=== PATIENT | male | born 1975 | race Asian ===

== ENCOUNTER 2020-12-01 09:20 | Outpatient (REF) | payer OTHER, SELFPAY ==
[2020-12-01 10:21] LABS: MANUAL DIFF FLAG NO
[2020-12-01 10:23] LABS: Basophils Absolute Auto 0.1 X10*3/uL (0.0-0.2); Basophils Percent Auto 0.5 % (0-2); Eosinophils Absolute Auto 0.3 X10*3/uL (0.0-0.4); Eosinophils Percent Auto 2.7 % (0-4); Hematocrit 40.6 % (42-52); Hemoglobin 13.1 g/dl (14.0-18.0); Imm Gran Abs Auto 0.02 X10*3/uL (0.00-0.03); Imm Gran Pct Auto 0.2 % (0.0-0.4); Lymphocytes Absolute Auto 4.4 X10*3/uL (1.2-4.9); Lymphocytes Percent Auto 39.9 % (20-40); Mean Corpuscular HGB Conc 32.3 g/dl (31.0-36.0); Mean Corpuscular Hemoglobin 26.6 pg (27.0-33.0); Mean Corpuscular Volume 82.5 fL (80-98); Mean Platelet Volume 10.4 fL (9.4-12.4); Monocytes Absolute Auto 0.7 X10*3/uL (0.1-1.2); Monocytes Percent Auto 6.7 % (2-11); Neutrophils Absolute Auto 5.5 X10*3/uL (2.0-8.3); Platelet Count 250 X10*3/uL (160-400); Red Blood Count 4.92 X10*6/uL (4.60-5.80); Red Cell Distribution Width 13.6 % (11.0-16.0)
[2020-12-01 10:42] LABS: Alanine Aminotransferase 34 U/L (0-40); Alkaline Phosphatase 91 U/L (39-117); Anion Gap 16 (12-20); Aspartate Amino Transferase 28 U/L (5-37); Bilirubin Total 0.3 mg/dL (0.0-1.0); Blood Urea Nitrogen 10 mg/dL (9-16); Calcium 8.8 mg/dL (8.4-10.2); Carbon Dioxide 22 mmol/L (22-29); Chloride 102 mmol/L (96-108); Cholesterol 188 mg/dL; Estimated Glomerular Filt Rate > 60; Glucose Random 255 mg/dL (60-115); HDL Cholesterol 29 mg/dL; LDL Cholesterol Calculated 100 mg/dl; Potassium 3.8 mmol/L (3.3-5.1); Sodium 136 mmol/L (135-145); Triglycerides 299 mg/dL
[2020-12-01 10:54] LABS: Estimated Average Glucose 226 mg/dL; Hemoglobin A1c % 9.5 %
[2020-12-01 11:04] LABS: Free T4 (Free Thyroxine) 0.94 ng/dL (0.71-1.85); Thyroid Stimulating Hormone 1.33 uIU/mL (0.32-4.0)
== END 2020-12-01 09:21 | disposition home or self-care (01) ==
LOC: HO.10HDL 09:20
PROVIDERS: Visit Provider Internal Medicine Medical Oncology
DX: E78.2 Mixed hyperlipidemia (principal); K21.9 Gastro-esophageal reflux disease without esophagitis; E03.9 Hypothyroidism, unspecified; E11.9 Type 2 diabetes mellitus without complications
CPT/HCPCS: 36415; 80053; 80061; 83036; 84439; 84443; 85025

== ENCOUNTER 2021-12-11 10:20 | Outpatient (REF) | payer OTHER, SELFPAY ==
[2021-12-11 10:42] LABS: MANUAL DIFF FLAG NO
[2021-12-11 11:55] LABS: Basophils Absolute Auto 0.1 X10*3/uL (0.0-0.2); Basophils Percent Auto 0.6 % (0-2); Eosinophils Absolute Auto 0.2 X10*3/uL (0.0-0.4); Eosinophils Percent Auto 2.8 % (0-4); Hematocrit 44.5 % (42.0-52.0); Hemoglobin 14.2 g/dl (14.0-18.0); Imm Gran Abs Auto 0.02 X10*3/uL (0.00-0.03); Imm Gran Pct Auto 0.2 % (0.0-0.4); Lymphocytes Absolute Auto 3.9 X10*3/uL (1.2-4.9); Lymphocytes Percent Auto 46.8 % (20-40); Mean Corpuscular HGB Conc 31.9 g/dl (31.0-36.0); Mean Corpuscular Hemoglobin 26.2 pg (27.0-33.0); Monocytes Absolute Auto 0.6 X10*3/uL (0.1-1.2); Monocytes Percent Auto 7.4 % (2-11); Neutrophils Absolute Auto 3.5 x10*3/uL (2.0-8.3); Neutrophils Percent Auto 42.2 % (45-73); Platelet Count 220 X10*3/uL (160-400); Red Blood Count 5.43 X10*6/uL (4.60-5.80); Red Cell Distribution Width 13.9 % (11.0-16.0); White Blood Count 8.3 X10*3/uL (4.8-10.8)
[2021-12-11 11:57] LABS: Estimated Average Glucose 249 mg/dL; Hemoglobin A1c % 10.3 %
[2021-12-11 12:37] LABS: Alanine Aminotransferase 36 U/L (0-40); Albumin Level 3.8 g/dL (3.5-5.0); Alkaline Phosphatase 86 U/L (39-117); Anion Gap 13 (12-20); Aspartate Amino Transferase 45 U/L (5-37); Bilirubin Total 0.4 mg/dL (0.0-1.0); Blood Urea Nitrogen 11 mg/dL (9-16); Calcium 8.7 mg/dL (8.4-10.2); Carbon Dioxide 23 mmol/L (22-29); Chloride 105 mmol/L (96-108); Cholesterol 210 mg/dL; Estimated Glomerular Filt Rate > 60; Glucose Fasting 152 mg/dL (60-99); HDL Cholesterol 30 mg/dL; LDL Cholesterol Calculated 147 mg/dl; Potassium 4.8 mmol/L (3.3-5.1); Sodium 136 mmol/L (135-145); Total Protein 7.2 g/dL (6.5-8.0); Triglycerides 169 mg/dL
[2021-12-11 12:38] LABS: Creatinine Urine 372.02 mg/dL
== END 2021-12-11 10:21 | disposition home or self-care (01) ==
LOC: HO.LAB 10:20
PROVIDERS: PCP Internal Medicine Medical Oncology; Visit Provider Internal Medicine Medical Oncology
DX: E11.9 Type 2 diabetes mellitus without complications (principal); E78.2 Mixed hyperlipidemia; E66.9 Obesity, unspecified
CPT/HCPCS: 36415; 80053; 80061; 82043; 83036; 85025

== ENCOUNTER 2023-03-30 10:01 | Outpatient (REF) | payer OTHER, SELFPAY ==
[2023-03-30 11:16] LABS: Estimated Average Glucose 255 mg/dL; Hemoglobin A1c % 10.5 %
[2023-03-30 11:18] LABS: Basophils Absolute Auto 0.1 X10*3/uL (0.0-0.2); Basophils Percent Auto 0.6 % (0-2); Eosinophils Absolute Auto 0.3 X10*3/uL (0.0-0.4); Eosinophils Percent Auto 2.4 % (0-4); Hematocrit 46.6 % (42.0-52.0); Hemoglobin 14.8 g/dl (14.0-18.0); Imm Gran Abs Auto 0.05 X10*3/uL (0.00-0.03); Imm Gran Pct Auto 0.4 % (0.0-0.4); Lymphocytes Absolute Auto 5.1 X10*3/uL (1.2-4.9); Lymphocytes Percent Auto 40.7 % (20-40); MANUAL DIFF FLAG SCAN; Mean Corpuscular HGB Conc 31.8 g/dl (31.0-36.0); Mean Corpuscular Hemoglobin 26.2 pg (27.0-33.0); Mean Corpuscular Volume 82.5 fL (80.0-98.0); Mean Platelet Volume 10.6 fL (9.4-12.4); Monocytes Absolute Auto 0.8 X10*3/uL (0.1-1.2); Monocytes Percent Auto 6.1 % (2-11); Neutrophils Absolute Auto 6.3 x10*3/uL (2.0-8.3); Neutrophils Percent Auto 49.8 % (45-73); Platelet Count 258 X10*3/uL (160-400); Red Blood Count 5.65 X10*6/uL (4.60-5.80); Red Cell Distribution Width 13.8 % (11.0-16.0); SCAN SMEAR FLAG 1; White Blood Count 12.6 X10*3/uL (4.8-10.8)
[2023-03-30 12:02] LABS: Prostate Specific Antigen 0.17 ng/mL (<0.05-4.0)
[2023-03-30 12:04] LABS: Alanine Aminotransferase 26 U/L (0-40); Albumin Level 4.1 g/dL (3.5-5.0); Alkaline Phosphatase 85 U/L (39-117); Anion Gap 14 (12-20); Aspartate Amino Transferase 21 U/L (5-37); Bilirubin Total 0.4 mg/dL (0.0-1.0); Blood Urea Nitrogen 18 mg/dL (9-16); Calcium 9.7 mg/dL (8.4-10.2); Carbon Dioxide 24 mmol/L (22-29); Chloride 107 mmol/L (96-108); Cholesterol 214 mg/dL; Estimated Glomerular Filt Rate > 60; Glucose Random 165 mg/dL (60-115); HDL Cholesterol 32 mg/dL; LDL Cholesterol Calculated 143 mg/dl; Potassium 4.2 mmol/L (3.3-5.1); Sodium 141 mmol/L (135-145); Total Protein 7.9 g/dL (6.5-8.0); Triglycerides 198 mg/dL
[2023-03-30 12:17] LABS: Creatinine Urine 237.36 mg/dL; Microalbum/Creatinine Ratio Ur 8.8 ug/mg cr
[2023-03-30 12:58] LABS: SLIDE REVIEW VERIFIED
== END 2023-03-30 10:02 | disposition home or self-care (01) ==
LOC: HO.LAB 10:01
PROVIDERS: PCP Internal Medicine Medical Oncology; Visit Provider Internal Medicine Medical Oncology
DX: Z00.00 Encounter for general adult medical examination without abnormal findings (principal); Z12.5 Encounter for screening for malignant neoplasm of prostate; E78.2 Mixed hyperlipidemia; N52.9 Male erectile dysfunction, unspecified; E66.9 Obesity, unspecified; E11.9 Type 2 diabetes mellitus without complications
CPT/HCPCS: 36415; 80053; 80061; 82043; 82306; 83036; 84153; 85025

== ENCOUNTER 2023-08-03 09:09 | Outpatient (REF) | payer OTHER, SELFPAY ==
[2023-08-03 09:36] LABS: MANUAL DIFF FLAG NO
[2023-08-03 10:21] LABS: Basophils Absolute Auto 0.1 X10*3/uL (0.0-0.2); Basophils Percent Auto 0.7 % (0-2); Eosinophils Absolute Auto 0.4 X10*3/uL (0.0-0.4); Eosinophils Percent Auto 3.1 % (0-4); Hematocrit 44.6 % (42.0-52.0); Hemoglobin 14.4 g/dl (14.0-18.0); Imm Gran Abs Auto 0.04 X10*3/uL (0.00-0.03); Imm Gran Pct Auto 0.4 % (0.0-0.4); Lymphocytes Absolute Auto 4.6 X10*3/uL (1.2-4.9); Lymphocytes Percent Auto 40.4 % (20-40); Mean Corpuscular HGB Conc 32.3 g/dl (31.0-36.0); Mean Corpuscular Hemoglobin 26.2 pg (27.0-33.0); Mean Corpuscular Volume 81.2 fL (80.0-98.0); Mean Platelet Volume 9.6 fL (9.4-12.4); Monocytes Absolute Auto 0.8 X10*3/uL (0.1-1.2); Neutrophils Absolute Auto 5.5 x10*3/uL (2.0-8.3); Neutrophils Percent Auto 48.4 % (45-73); Platelet Count 282 X10*3/uL (160-400); Red Blood Count 5.49 X10*6/uL (4.60-5.80); Red Cell Distribution Width 13.9 % (11.0-16.0); White Blood Count 11.3 X10*3/uL (4.8-10.8)
[2023-08-03 10:39] LABS: Alanine Aminotransferase 34 U/L (0-40); Albumin Level 4.1 g/dL (3.5-5.0); Alkaline Phosphatase 69 U/L (39-117); Anion Gap 15 (12-20); Aspartate Amino Transferase 29 U/L (5-37); Bilirubin Total 0.5 mg/dL (0.0-1.0); Blood Urea Nitrogen 12 mg/dL (9-16); Calcium 9.4 mg/dL (8.4-10.2); Carbon Dioxide 24 mmol/L (22-29); Chloride 103 mmol/L (96-108); Cholesterol 216 mg/dL (<200); Estimated Glomerular Filt Rate > 60; Glucose Fasting 134 mg/dL (60-99); HDL Cholesterol 31 mg/dL (>40); LDL Cholesterol Calculated 150 mg/dL (<100); Potassium 4.6 mmol/L (3.3-5.1); Sodium 137 mmol/L (135-145); Triglycerides 177 mg/dL (<150)
[2023-08-03 10:45] LABS: Estimated Average Glucose 192 mg/dL; Hemoglobin A1c % 8.3 % (<6.0)
== END 2023-08-03 09:10 | disposition home or self-care (01) ==
LOC: HO.LAB 09:09
PROVIDERS: PCP Internal Medicine Medical Oncology; Visit Provider Internal Medicine Medical Oncology
DX: E66.9 Obesity, unspecified (principal); E11.9 Type 2 diabetes mellitus without complications
CPT/HCPCS: 36415; 80053; 80061; 83036; 85025

== ENCOUNTER 2023-11-07 10:29 | Outpatient (REF) | payer OTHER, SELFPAY ==
[2023-11-07 10:46] LABS: MANUAL DIFF FLAG NO
[2023-11-07 11:27] LABS: Basophils Absolute Auto 0.1 X10*3/uL (0.0-0.2); Basophils Percent Auto 0.7 % (0-2); Eosinophils Absolute Auto 0.2 X10*3/uL (0.0-0.4); Eosinophils Percent Auto 2.3 % (0-4); Hematocrit 44.6 % (42.0-52.0); Hemoglobin 14.6 g/dl (14.0-18.0); Imm Gran Abs Auto 0.03 X10*3/uL (0.00-0.03); Imm Gran Pct Auto 0.3 % (0.0-0.4); Lymphocytes Absolute Auto 3.4 X10*3/uL (1.2-4.9); Lymphocytes Percent Auto 35.7 % (20-40); Mean Corpuscular HGB Conc 32.7 g/dl (31.0-36.0); Mean Corpuscular Hemoglobin 26.2 pg (27.0-33.0); Mean Corpuscular Volume 79.9 fL (80.0-98.0); Monocytes Absolute Auto 0.6 X10*3/uL (0.1-1.2); Monocytes Percent Auto 6.2 % (2-11); Neutrophils Absolute Auto 5.2 x10*3/uL (2.0-8.3); Neutrophils Percent Auto 54.8 % (45-73); Platelet Count 278 X10*3/uL (160-400); Red Blood Count 5.58 X10*6/uL (4.60-5.80); Red Cell Distribution Width 13.9 % (11.0-16.0); White Blood Count 9.5 X10*3/uL (4.8-10.8)
[2023-11-07 11:38] LABS: Estimated Average Glucose 200 mg/dL; Hemoglobin A1c % 8.6 % (<6.0)
[2023-11-07 12:06] LABS: Alanine Aminotransferase 28 U/L (0-40); Alkaline Phosphatase 78 U/L (39-117); Anion Gap 13 (12-20); Aspartate Amino Transferase 22 U/L (5-37); Bilirubin Total 0.4 mg/dL (0.0-1.0); Blood Urea Nitrogen 14 mg/dL (9-16); Calcium 9.3 mg/dL (8.4-10.2); Carbon Dioxide 25 mmol/L (22-29); Chloride 106 mmol/L (96-108); Cholesterol 206 mg/dL (<200); Estimated Glomerular Filt Rate > 60; Glucose Random 145 mg/dL (60-115); HDL Cholesterol 31 mg/dL (>40); LDL Cholesterol Calculated 148 mg/dL (<100); Potassium 4.1 mmol/L (3.3-5.1); Sodium 140 mmol/L (135-145); Total Protein 7.9 g/dL (6.5-8.0); Triglycerides 135 mg/dL (<150)
[2023-11-07 12:58] LABS: Microalbum/Creatinine Ratio Ur 18.3 ug/mg cr (<30)
== END 2023-11-07 10:30 | disposition home or self-care (01) ==
LOC: HO.LAB 10:29
PROVIDERS: PCP Internal Medicine Medical Oncology; Visit Provider Internal Medicine Medical Oncology
DX: E78.2 Mixed hyperlipidemia (principal); E66.9 Obesity, unspecified; E11.21 Type 2 diabetes mellitus with diabetic nephropathy
CPT/HCPCS: 36415; 80053; 80061; 82043; 82570; 83036; 85025

== ENCOUNTER 2024-07-13 01:53 | Emergency (ER) | payer OTHER, SELFPAY ==
[2024-07-13 01:55] VITALS: BP 140/79; PULSE 98; RESP 20; TEMP 36.6; O2SAT 98; BMI 39.1
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
[2024-07-13 04:00] VITALS: BP 134/76; PULSE 76; RESP 14; TEMP 36.4; O2SAT 97
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
[2024-07-13] MEDS: Ibuprofen 400 MG TABLET PO (05:04)
[2024-07-13] MEDS: Amoxicillin/Potassium Clav 875 MG TABLET PO (05:04)
[2024-07-13] MEDS: Acetaminophen 325 MG TABLET 975 MG PO (05:04)
[2024-07-13] MEDS: Lidocaine HCl 1 % MPF 2 ML VIAL 4 ML INFILTRATI (05:04)
--- NOTE | 2024-07-13 05:13 | PC.NURSE ---
Pt medicated per [facility] Plan of care ongoing.
[2024-07-13 05:20] VITALS: BP 134/76; PULSE 76; RESP 14; TEMP 36.4; O2SAT 97
== END 2024-07-13 05:22 | disposition home or self-care (01) ==
PROVIDERS: Emergency Provider Emergency Medicine; PCP Internal Medicine Medical Oncology
DX: S01.511A Laceration without foreign body of lip, initial encounter (principal); Y04.0XXA Assault by unarmed brawl or fight, initial encounter; Y93.9 Activity, unspecified; Y92.512 Supermarket, store or market as the place of occurrence of the external cause; Y99.0 Civilian activity done for income or pay
CPT/HCPCS: 12011; 99284; J2003

== ENCOUNTER 2024-08-20 13:58 | Outpatient (REF) | payer OTHER, SELFPAY ==
[2024-08-20 14:42] LABS: Basophils Absolute Auto 0.1 X10*3/uL (0.0-0.2); Basophils Percent Auto 0.7 % (0-2); Eosinophils Absolute Auto 0.4 X10*3/uL (0.0-0.4); Hematocrit 42.6 % (42.0-52.0); Hemoglobin 13.8 g/dl (14.0-18.0); Imm Gran Abs Auto 0.03 X10*3/uL (0.00-0.03); Imm Gran Pct Auto 0.2 % (0.0-0.4); Lymphocytes Absolute Auto 5.2 X10*3/uL (1.2-4.9); Lymphocytes Percent Auto 42.1 % (20-40); MANUAL DIFF FLAG SCAN; Mean Corpuscular HGB Conc 32.4 g/dl (31.0-36.0); Mean Corpuscular Volume 80.4 fL (80.0-98.0); Mean Platelet Volume 9.8 fL (9.4-12.4); Monocytes Absolute Auto 0.9 X10*3/uL (0.1-1.2); Monocytes Percent Auto 7.1 % (2-11); Neutrophils Absolute Auto 5.8 x10*3/uL (2.0-8.3); Neutrophils Percent Auto 46.9 % (45-73); Platelet Count 280 X10*3/uL (160-400); Red Cell Distribution Width 14.6 % (11.0-16.0); SCAN SMEAR FLAG 1; White Blood Count 12.3 X10*3/uL (4.8-10.8)
[2024-08-20 14:48] LABS: Estimated Average Glucose 223 mg/dL; Hemoglobin A1C 282.8261 umol/L; Hemoglobin A1c % 9.4 % (<6.0); Total Hemoglobin (HGBA1C) 3546.0747 umol/L
[2024-08-20 15:06] LABS: SLIDE REVIEW VERIFIED
[2024-08-20 15:07] LABS: Alanine Aminotransferase 25 U/L (0-40); Albumin Level 4.1 g/dL (3.5-5.0); Alkaline Phosphatase 73 U/L (39-117); Anion Gap 14 (12-20); Aspartate Amino Transferase 21 U/L (5-37); Bilirubin Total 0.4 mg/dL (0.0-1.0); Blood Urea Nitrogen 10 mg/dL (9-16); Calcium 9.1 mg/dL (8.4-10.2); Carbon Dioxide 24 mmol/L (22-29); Chloride 107 mmol/L (96-108); Estimated Glomerular Filt Rate > 60; Glucose Fasting 197 mg/dL (60-99); Potassium 4.4 mmol/L (3.3-5.1); Sodium 141 mmol/L (135-145); Total Protein 7.6 g/dL (6.5-8.0)
--- OUTSIDE RECORDS SUMMARY | 2024-08-20 15:25 | XMS_ITS ---
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 Role Phone Mohamud Covarrubias Primary Care Provider REASON FOR VISIT Needs call back from Medications Medication SIG (Take, Route, Frequency, Duration) Notes Start Date End Date Status Azithromycin 250 MG as directed Orally 2 Tablets on the first day, one tablet the rest of the days for 5 days disp one inhaler 08/06/2024 Active Albuterol Sulfate HFA 108 (90 Base) MCG/ACT 1 puff as needed Inhalation every 4 hrs for 28 days disp one inhaler 08/06/2024 Active predniSONE 20 MG 1 tablet Orally Once a day for 7 days disp one inhaler 08/06/2024 08/20/2024 Active Social History Sex Assigned At : Social History Observation Description Sex Assigned At Male Encounters Encounter Location Date Provider Diagnosis Mohamud Covarrubias III, MD [address] [place] [address] [place] [address] 08/06/2024 Mohamud Covarrubias Plan Of Treatment Medication Medication Name Sig Start Date Stop Date Notes Azithromycin 250 MG as directed Orally 2 Tablets on the first day, one tablet the rest of the days for 5 days 08/06/2024 disp one inhaler Albuterol Sulfate HFA 108 (90 Base) MCG/ACT 1 puff as needed Inhalation every 4 hrs for 28 days 08/06/2024 disp one inhaler predniSONE 20 MG 1 tablet Orally Once a day for 7 days 08/06/2024 08/20/2024 disp one inhaler Next Appt Details Provider Name:Mohamud Covarrubias 08/21/2024 11:00:00 AM, [address] [facility] [address], [place], [id number], Provider Name:Mohamud Covarrubias, 10/02/2024 09:00:00 AM, [address] [place] [address] [address], [place], [phone], Progress Notes * Khoi MATHURdDOB:1974 (49 yo M)Acc No.[id number]:08/06/2024 Patient:?LEECHAPIS Yolanda :1975???Age:49 Y???Sex:Male Address:[address] [place] [address] [place], [id number] * Refills? Start Azithromycin Tablet, 250 MG, Orally, 6, as directed, 2 Tablets on the first day, one tablet the rest of the days, 5 days, Refills=0 Start predniSONE Tablet, 20 MG, Orally, 7 Tablet, 1 tablet, Once a day, 7 days, Refills=1 Start Albuterol Sulfate HFA Aerosol Solution, 108 (90 Base) MCG/ACT, Inhalation, 1 Applicator, 1 puff as needed, every 4 hrs, 28 days, Refills=1 * * Date:?
--- OUTSIDE RECORDS SUMMARY | 2024-08-20 15:25 | XMS_ITS | Patient Health Record ---
Author Organization Mohamud Covarrubias III, MD Address [address] [place] [address] Care Team Providers Care Fairing Man Name Role Phone Mohamud Covarrubias Primary Care Provider Allergies Allergen (clinical drug ingredient) Drug/Non Drug Allergy documented on EMR Reaction Allergy Type Onset Date Status No Known Drug Allergy Unknown Drug Allergy Active Results Component Value Reference Range Notes Complete Blood Count Auto Di ff Reviewed date:11/09/2023 01:27:25 PM Interpretation: Performing Lab:[facility], [address] [place] [phone] Notes/Report: White Blood Count 9.5 4.8-10.8 X10*3/uL Red Blood Count 5.58 4.60-5.80 X10*6/uL Hemoglobin 14.6 14.0-18.0 g/dl Hematocrit 44.6 42.0-52.0 % Mean Corpuscular Volume 79.9 80.0-98.0 fL Mean Corpuscular Hemoglobin 26.2 27.0-33.0 pg Mean Corpuscular HGB Conc 32.7 31.0-36.0 g/dl Red Cell Distribution Width 13.9 11.0-16.0 % Platelet Count 278 160-400 X10*3/uL Mean Platelet Volume 10.0 9.4-12.4 fL Neutrophils Percent Auto 54.8 45-73 % Imm Gran Pct Auto 0.3 0.0-0.4 % Lymphocytes Percent Auto 35.7 20-40 % Monocytes Percent Auto 6.2 2-11 % Eosinophils Percent Auto 2.3 0-4 % Basophils Percent Auto 0.7 0-2 % NRBC Pct Auto 0.0 0.0-0.2 /100WBC Neutrophils Absolute Auto 5.2 2.0-8.3 x10*3/u L Imm Gran Abs Auto 0.03 0.00-0.03 X10*3/uL Lymphocytes Absolute Auto 3.4 1.2-4.9 X10*3/u L Monocytes Absolute Auto 0.6 0.1-1.2 X10*3/uL Eosinophils Absolute Auto 0.2 0.0-0.4 X10*3/u L Basophils Absolute Auto 0.1 0.0-0.2 X10*3/uL NRBC Abs Auto 0.000 0.0-0.012 X10*3/uL Comprehensive Met. Panel Reviewed date:11/09/2023 01:27:25 PM Interpretation: Performing Lab:[address] [phone] Notes/Report: Sodium 140 135-145 mmol/L Potassium 4.1 3.3-5.1 mmol/L Chloride 106 96-108 mmol/L Carbon Dioxide 25 22-29 mmol/L Anion Gap 13 12-20 Blood Urea Nitrogen 14 9-16 mg/dL Creatinine 0.83 0.5-1.4 mg/dL Estimated Glomerular Filt Rate > 60 NOTE: For -Martiniquais individuals, multiply the result by 1.210. Chronic Kidney Disease: Estimated GFR < 60 mL/min/1.73m2 Severe Kidney Disease: Estimated GFR < 15 mL/min/1.73m2 Glucose Random 145 60-115 mg/dL Calcium 9.3 8.4-10.2 mg/dL Bilirubin Total 0.4 0.0-1.0 mg/dL Aspartate Amino Transferase 22 5-37 U/L Alanine Aminotransferase 28 0-40 U/L Total Protein 7.9 6.5-8.0 g/dL Albumin Level 4.0 3.5-5.0 g/dL Alkaline Phosphatase 78 39-117 U/L Lipid Panel Reviewed date:11/09/2023 01:27:25 PM Interpretation: Performing Lab:[address] [phone] Notes/Report: Triglycerides 135 <150 mg/dL Desirable Triglyceride: less than 150 mg/dL Borderline High Triglyceride 150-199 mg/dL High Triglyceride: 200-499 mg/dL Very High Triglyceride: greater than or equal to 5OO mg/dL Cholesterol 206 <200 mg/dL Desirable Cholesterol: less than 200 mg/dL Borderline High Cholesterol: 200-239 mg/dL High Cholesterol: greater than 239 mg/dL LDL Cholesterol Calculated 148 <100 mg/dL Desirable LDL: less than 100 mg/dL Near Optimal/Above Optimal LDL: 110-129 mg/dL Borderline High LDL: 130-159 mg/dL High LDL: 160-189 mg/dL Very High LDL: greater than or equal to 190 mg/dL HDL Cholesterol 31 >40 mg/dL Desirable HDL: greater than 40 mg/dL Note: This HDL assay may give artificially low results in patients with liver disease. Microalbumin, Random Reviewed date:11/09/2023 01:27:25 PM Interpretation: Performing Lab:[address] [phone] Notes/Report: Creatinine Urine 364.76 Microalbumin Urine 67.0 Microalbum/Creatinine Ratio Ur 18.3 <30 ug/mg cr Albumin/Creatinine Ratio Reference Ranges: Normal: < 30 ug/mg creatinine Microalbuminuria: 30 - 300 ug/mg creatinine Clinical Albuminuria: > 300 ug/mg creatinine Hemoglobin A1c Reviewed date:11/09/2023 01:27:25 PM Interpretation: Performing Lab:[facility], [address] [place] [phone] Notes/Report: Hemoglobin A1c % 8.6 <6.0 % Hemoglobin A1C Reference Range Adults: 4.8 - 6.0 % Non diabetic: < 6.0 % Goal: < 7.0 % Additional Action Suggested: > 8.0 % Note: Hemoglobin A1c results are invalid for patients with abnormal amounts of HbF. Blood transfusions may impact the HbA1c concentration in the patient sample. Estimated Average Glucose 200 eAG = Estimated average glucose which is %A1C expressed as average glucose, using the formula of the Y6N-Oweeach Average Glucose study (ADAG), Diabetes Care, Vol.31,#8, Mar. 2007 Complete Blood Count Auto Di ff (Not yet reviewed by provider) Interpretation: Performing Lab:[facility], [address] [place] [phone] Notes/Report: White Blood Count 12.3 4.8-10.8 X10*3/uL Red Blood Count 5.30 4.60-5.80 X10*6/uL Hemoglobin 13.8 14.0-18.0 g/dl Hematocrit 42.6 42.0-52.0 % Mean Corpuscular Volume 80.4 80.0-98.0 fL Mean Corpuscular Hemoglobin 26.0 27.0-33.0 pg Mean Corpuscular HGB Conc 32.4 31.0-36.0 g/dl Red Cell Distribution Width 14.6 11.0-16.0 % Platelet Count 280 160-400 X10*3/uL Mean Platelet Volume 9.8 9.4-12.4 fL Neutrophils Percent Auto 46.9 45-73 % Imm Gran Pct Auto 0.2 0.0-0.4 % Lymphocytes Percent Auto 42.1 20-40 % Monocytes Percent Auto 7.1 2-11 % Eosinophils Percent Auto 3.0 0-4 % Basophils Percent Auto 0.7 0-2 % NRBC Pct Auto 0.0 0.0-0.2 /100WBC Neutrophils Absolute Auto 5.8 2.0-8.3 x10*3/u L Imm Gran Abs Auto 0.03 0.00-0.03 X10*3/uL Lymphocytes Absolute Auto 5.2 1.2-4.9 X10*3/u L Monocytes Absolute Auto 0.9 0.1-1.2 X10*3/uL Eosinophils Absolute Auto 0.4 0.0-0.4 X10*3/u L Basophils Absolute Auto 0.1 0.0-0.2 X10*3/uL NRBC Abs Auto 0.000 0.0-0.012 X10*3/uL White Blood Count 12.3 4.8-10.8 X10*3/uL Red Blood Count 5.30 4.60-5.80 X10*6/uL Hemoglobin 13.8 14.0-18.0 g/dl Hematocrit 42.6 42.0-52.0 % Mean Corpuscular Volume 80.4 80.0-98.0 fL Mean Corpuscular Hemoglobin 26.0 27.0-33.0 pg Mean Corpuscular HGB Conc 32.4 31.0-36.0 g/dl Red Cell Distribution Width 14.6 11.0-16.0 % Platelet Count 280 160-400 X10*3/uL Mean Platelet Volume 9.8 9.4-12.4 fL Neutrophils Percent Auto 46.9 45-73 % Imm Gran Pct Auto 0.2 0.0-0.4 % Lymphocytes Percent Auto 42.1 20-40 % Monocytes Percent Auto 7.1 2-11 % Eosinophils Percent Auto 3.0 0-4 % Basophils Percent Auto 0.7 0-2 % NRBC Pct Auto 0.0 0.0-0.2 /100WBC Neutrophils Absolute Auto 5.8 2.0-8.3 x10*3/u L Imm Gran Abs Auto 0.03 0.00-0.03 X10*3/uL Lymphocytes Absolute Auto 5.2 1.2-4.9 X10*3/u L Monocytes Absolute Auto 0.9 0.1-1.2 X10*3/uL Eosinophils Absolute Auto 0.4 0.0-0.4 X10*3/u L Basophils Absolute Auto 0.1 0.0-0.2 X10*3/uL NRBC Abs Auto 0.000 0.0-0.012 X10*3/uL CORRECTED REPORT CORRECTED REPORT Comprehensive Wilmot. Panel Fa st (Not yet reviewed by provider) Interpretation: Performing Lab:[facility], [address] [place] [phone] Notes/Report: Sodium 141 135-145 mmol/L Potassium 4.4 3.3-5.1 mmol/L Chloride 107 96-108 mmol/L Carbon Dioxide 24 22-29 mmol/L Anion Gap 14 12-20 Blood Urea Nitrogen 10 9-16 mg/dL Creatinine 0.95 0.5-1.4 mg/dL Estimated Glomerular Filt Rate > 60 Chronic Kidney Disease: Estimated GFR < 60 mL/min/1.73m2 Severe Kidney Disease: Estimated GFR < 15 mL/min/1.73m2 Glucose Fasting 197 60-99 mg/dL A fasting glucose of 126 mg/dl or greater on more than one occasion is considered diagnostic of diabetes. Calcium 9.1 8.4-10.2 mg/dL Bilirubin Total 0.4 0.0-1.0 mg/dL Aspartate Amino Transferase 21 5-37 U/L Alanine Aminotransferase 25 0-40 U/L Total Protein 7.6 6.5-8.0 g/dL Albumin Level 4.1 3.5-5.0 g/dL Alkaline Phosphatase 73 39-117 U/L SLIDE REVIEW (Not yet review ed by provider) Interpretation: Performing Lab:[facility], [address] [place] [phone] Notes/Report: SLIDE REVIEW VERIFIED Hemoglobin A1c (Not yet revi ewed by provider) Interpretation: Performing Lab:[facility], [address] [place] [phone] Notes/Report: Hemoglobin A1c % 9.4 <6.0 % Hemoglobin A1C Reference Range Adults: 4.8 - 6.0 % Non diabetic: < 6.0 % Goal: < 7.0 % Additional Action Suggested: > 8.0 % Note: Hemoglobin A1c results are invalid for patients with abnormal amounts of HbF. Blood transfusions may impact the HbA1c concentration in the patient sample. Estimated Average Glucose 223 eAG = Estimated average glucose which is %A1C expressed as average glucose, using the formula of the K5G-Eltjato Average Glucose study (ADAG), Diabetes Care, Vol.31,#8, Mar. 2007 Reason For Referral Reason evaluate and treatme nt for ED Diagnosis 1 Erectile dysfunction , unspecified erectile dysfunction type (N52.9) Referral Organization Mohamud Covarrubias III, MD Referring Provider First Name Mohamud Referring Provider Last Name Satish Referring Provider Speciality Internal M edicine Referred Provider JAMMIE JACKSON Referred Provider Specialty Urology General Notes Rhonda Diaz CMA 12/2023 09:32:46 AM EST > received notice from [facility] pt has appt for 11/28/2023 at 9:15am with Amado Long sent appt information to the patient Referral Priority Routine Referral Appointment Date 11/28/2023 Medications Medication SIG (Take, Route, Frequency, Duration) Notes Start Date End Date Status Pioglitazone HCl 15 MG 1 tablet Orally Once a day 11/14/2023 Active Gauze Pads 3 X3 as directed - test blood sugars twice a week fasting 11/02/2020 Active Alcohol Prep 70 % as directed - test blood sugars twice a week fasting 11/02/2020 Active Azithromycin 250 MG as directed Orally 2 Tablets on the first day, one tablet the rest of the days for 5 days 07/06/2024 Active Azithromycin 250 MG as directed Orally 2 [...] days disp one inhaler 08/06/2024 08/20/2024 Active FreeStyle Lite Test - as directed In Vitro test blood sugars twice a week fasting prior 11/02/2020 Active FreeStyle Lancets - as directed - test blood sugars twice a week fasting prior 11/02/2020 Active metFORMIN HCl 1000 MG TAKE ONE TABLET BY MOUTH TWICE A DAY WITH MEALS Active Omeprazole 20 MG TAKE ONE CAPSULE BY MOUTH EVERY MORNING 30 MINUTES BEFORE A MEAL for 30 Active FreeStyle Lite - as directed - test blood sugars twice a week fasting prior 11/02/2020 Active glyBURIDE 5 MG TAKE 1 TABLET BY MOUTH ONCE DAILY WITH FIRST MAIN MEAL. Active Immunizations Vaccine Route Administration Date Status Comme nts COVID PFIZER Unknown 01/02/2021 Administered COVID PFIZER Unknown 07/27/2021 Administered COVID PFIZER Unknown 12/12/2020 Administered Social History Tobacco Use: Social History Observation Description Date Details (start date - stop date) Current Smoker NA - NA Sex Assigned At : Social History Observation Description Sex Assigned At Male Tobacco Use/Smoking Question Answer Notes Patient is a current smoker How often do you smoke cigarettes? every day How many cigarettes a day do you smoke? 6-10 How soon after you wake up d o you smoke your first cigarette? 31-60 minutes Are you interested in quitting? Not ready to kenyatta t Additional Findings: Tobacco User Light cigarett e smoker ((1-9 cigs/day) Alcohol Screen Question Answer Notes Did you have a drink containing alcohol in the p ast year? No Points 0 Interpretation Negative Problems Problem Type SNOMED Code ICD Code Onset Dates Problem Status W/U Status Risk Notes Problem Depression (025283396) Depression (F32.9) Active confirmed He has been compliant with his antidepressan ts. He had no suicidal ideation. He is completing all of the activities of daily life without complication. Problem 154222049367879 Obesity (BMI 30.0-34.9) (E66.9) Active confirmed His body mass index is now only 30 to having lost 6 pounds. We discussed his diet and nutrition. We made a plan to continue weight loss at this rate through healthy diet and regular physical activity. Problem Plantar wart (09016400) Plantar wart (B07.0) Active confirmed The wart has resolved Problem 314659912 Mixed hyperlipidemia (E78.2) Active confirmed His total cholesterol is 216, slightly out of range. He admits to eating red meat at least once a day. We have discussed the elements of a cholesterol reduction diet. He has gained 10 pounds since his last visit and we made a plan to lose weight aggressively. Current medications were continued without change. Problem 90660424164431019 Sciatica, righ t side (M54.31) Active confirmed No sciatica is present today. On the right. Problem 200879456 GERD without esophagitis (K21.9) Active confirmed This is well controlled with lwws-mym-xyux ter medications and was not an issue today. Problem 306692831 Erectile dysfunction, unspecified erectile dysfunction type (N52.9) Active confirmed With medications this problem has resolved. Problem 43841493 Tobacco dependence (F17.200) Active confirmed He smokes one half pack to 1 pack of cigarettes per day. I've discussed with him the health consequences of continued smoking. I have offered to refer him to the smoking cessation programs of local [facility] sent to smoke [place]. I have offered to give him Chantix, which she has had in the past and nicotine patches. He is going to consider this offer. Problem 467309629 Left leg pain (M79.605) Active confirmed He is pain in his left greater trochanter as well as his left knee in his left foot. The history indicates 3 separate areas of pain. The left hip is trochanter, right is. It is not clear what is wrong with the near the foot. I last a quad stayer to evaluate that when he sees him for his plantar wart. Problem Diabetic nephropathy (525910272) Diabetic nephropathy (E11.21) Active confirmed His renal function remains stable if this time. Problem 78351593 Sciatica of left side (M54.32) Active confirmed The pain in the left leg does not appear to be sciatica. Problem Type 2 diabetes mellitus without complication (707624403) Type 2 diabetes mellitus without complication, without long-term current use of insulin (E11.9) Active confirmed His hemoglobin A1c has increased from 8.3 up to 8.6. His medication was increased. A follow-up visit was given to him. We discussed the necessity to reduce his weight and his A1c. Vital Signs Heart Rate 85 /min 11/14/2023 Temperature 97.9 degrees Fahrenheit 11/14/2023 Blood pressure diastolic 78 mm Hg 11/14/2023 Height 68 in 11/14/2023 Blood pressure systolic 136 mm Hg 11/14/2023 Weight 212 lbs 11/14/2023 BMI 32.23 kg/m2 11/14/2023 Encounters Encounter Location Date Provider Diagnosis Mohamud Covarrubias III, MD [address] [place] [address] [place] [address] 11/14/2023 Mohamud Covarrubias Obesity (BMI 30.0-34 .9) E66.9 ; Type 2 diabetes mellitus without complication, without long-term current use of insulin E11.9 ; Tobacco dependence F17.200 ; Sciatica, right side M54.31 ; Plantar wart B07.0 ; Mixed hyperlipidemia E78.2 ; GERD without esophagitis K21.9 and Depression F32.9 Mohamud Covarrubias III, MD [address] [place] [address] [place] [phone] 08/06/2024 Mohamud Covarrubias III, MD [address] [place] [address] [place] [address] 10/15/2023 Mohamud Covarrubias III, MD [address] [place] [address] [place] [address] 07/06/2024 Mohamud Covarrubias III, MD [address] [place] [address] [place] [address] 07/06/2024 Mohamud Covarrubias Assessments Encounter Date Diagnosis (ICD Code) Assessment Notes Treat ment Notes Treatment Clinical Notes 11/14/2023 Obesity (BMI 30.0-34.9) (ICD-10 - E66.9) His body mass index is now only 30 to having lost 6 pounds. We discussed his diet and nutrition. We made a plan to continue weight loss at this rate through healthy diet and regular physical activity. 11/14/2023 Type 2 diabetes mellitus without complication, without long-term current use of insulin (ICD-10 - E11.9) His hemoglobin A1c has increased from 8.3 up to 8.6. His medication was increased. A follow-up visit was given to him. We discussed the necessity to reduce his weight and his A1c. 11/14/2023 Tobacco dependence (ICD-10 - F17.200) He smokes one half pack to 1 pack of cigarettes per day. I've discussed with him the health consequences of continued smoking. I have offered to refer him to the smoking cessation programs of local [facility] sent to smoke [place]. I have offered to give him Chantix, which she has had in the past and nicotine patches. He is going to consider this offer. 11/14/2023 Sciatica, right side (ICD-10 - M54.31) No sciatica is present today. On the right. 11/14/2023 Plantar wart (ICD-10 - B07.0) The wart has resolved 11/14/2023 Mixed hyperlipidemia (ICD-10 - E78.2) His total cholesterol is 216, slightly out of range. He admits to eating red meat at least once a day. We have discussed the elements of a cholesterol reduction diet. He has gained 10 pounds since his last visit and we made a plan to lose weight aggressively. Current medications were continued without change. 11/14/2023 GERD without esophagitis (ICD-10 - K21.9) This is well controlled with jhkv-edj-ezeadxi medications and was not an issue today. 11/14/2023 Depression (ICD-10 - F32.9) He has been compliant with his antidepressants. He had no suicidal ideation. He is completing all of the activities of daily life without complication. Plan Of Treatment Pending Test Test Name Order Date PROFILE, FASTING (COMPREHENSIVE METABOLI C) 04/27/2020 PROFILE, FASTING (COMPREHENSIVE METABOLI C) 12/15/2020 PROFILE, FASTING (COMPREHENSIVE METABOLI C) 07/15/2019 PROFILE, FASTING (COMPREHENSIVE METABOLI C) 09/05/2018 PROFILE, FASTING (COMPREHENSIVE METABOLI C) 01/11/2023 PROFILE, FASTING (COMPREHENSIVE METABOLI C) 11/14/2023 PROFILE, FASTING (COMPREHENSIVE METABOLI C) 08/15/2023 PROFILE, FASTING (COMPREHENSIVE METABOLI C) 01/01/2022 PROFILE, FASTING (COMPREHENSIVE METABOLI C) 01/09/2021 PROFILE, FASTING (COMPREHENSIVE METABOLI C) 04/25/2023 PROFILE, RANDOM (COMPREHENSIVE METABOLIC ) 11/02/2020 PROFILE, RANDOM (COMPREHENSIVE METABOLIC ) 06/19/2019 HEMOGLOBIN A1C (GLYCOHEMOGLOBIN) 022 HEMOGLOBIN A1C (GLYCOHEMOGLOBIN) 021 HEMOGLOBIN A1C (GLYCOHEMOGLOBIN) 023 HEMOGLOBIN A1C (GLYCOHEMOGLOBIN) 021 HEMOGLOBIN A1C (GLYCOHEMOGLOBIN) 020 HEMOGLOBIN A1C (GLYCOHEMOGLOBIN) 019 HEMOGLOBIN A1C (GLYCOHEMOGLOBIN) 023 AMYLASE 09/05/2018 LIPID PANEL 01/09/2021 LIPID PANEL 04/25/2023 LIPID PANEL 12/15/2020 LIPID PANEL 11/02/2020 LIPID PANEL 04/27/2020 LIPID PANEL 07/15/2019 LIPID PANEL 01/11/2023 FREE T4 (FT4) 11/02/2020 TSH (THYROID STIMULATING HORMONE) 2020 PSA, TOTAL 01/11/2023 PSA, TOTAL 07/15/2019 MICROALBUMIN, RANDOM 01/11/2023 MICROALBUMIN, RANDOM 01/09/2021 MICROALBUMIN, RANDOM 04/27/2020 CBC w DIFF 01/01/2022 CBC w DIFF 04/25/2023 CBC w DIFF 12/15/2020 CBC w DIFF 01/11/2023 CBC w DIFF 01/09/2021 CBC w DIFF 04/27/2020 CBC w DIFF 07/15/2019 CBC w DIFF 11/02/2020 CBC w DIFF 06/19/2019 VITAMIN D 25-OH TOTAL 01/11/2023 CBC WITH AUTO DIFF 11/14/2023 CBC WITH AUTO DIFF 08/15/2023 Complete Blood Count Auto Diff Comprehensive Wilmot. Panel Fast Lipid Panel 08/15/2023 Lipid Panel 01/01/2022 Microalbumin, Random 08/15/2023 SLIDE REVIEW 08/20/2024 Hemoglobin A1c 08/15/2023 Hemoglobin A1c 12/15/2020 Hemoglobin A1c 08/20/2024 Hemoglobin A1c 11/14/2023 Next Appt Details Provider Name:Mohamud Covarrubias, 08/21/2024 11:00:00 AM, [address] [facility] [address], [place], [address], Provider Name:Mohamud Kemprne, 10/02/2024 09:00:00 AM, [address] [place] [address] [address], [place], [address], Insurance Providers Payer Name Payer Address Payer Phone Subscriber Number Group Number Insured Name Patient Relationship to Insured Coverage Start Date Coverage End Date [employer] [address] [address] [place] [address] [id number] Yolanda Mathur Self - patient is the insured MEDICAID [address] [place], [place] [id number] Yolanda Mathur Self - patient is the insured Medical (General) History Medical History History ICD Code Sciatica M54.30 left leg pain one year tobacco dependence obesity mixed hyperlipidemia GERD plantar wart right foot erectile dysfunction dyspepsia 2020 type 2 diabetes mellitus Surgical History Surgery Date(Month/Year)
--- OUTSIDE RECORDS SUMMARY | 2024-08-20 15:25 | XMS_ITS ---
Author Organization Mohamud Covarrubias III, MD Address [address] [place] [address] [place] [address] Care Team Providers Care Process Safety Specialist Name Role Phone Mohamud Covarrubias Primary Care Provider [phone] REASON FOR VISIT Needs call back from Social History Sex Assigned At : Social History Observation Description Sex Assigned At Male Encounters Encounter Location Date Provider Diagnosis Mohamud Covarrubias III, MD [address] [place] [address] [place] [address] 07/06/2024 Mohamud Covarrubias Plan Of Treatment Next Appt Details Provider Name:Mohamud Covarrubias, 08/21/2024 11:00:00 AM, [address] [place] [address] [place], [address], Provider Name:Mohamud Covarrubias, 10/02/2024 09:00:00 AM, [address] [place] [address] [place], [address], Progress Notes * Khoi MTAHURdDOB:1974 (48 yo M)Acc No.[id number]:07/06/2024 Patient:?LEECHAPIS Yolanda :1975???Age:48 Y???Sex:Male Address:[address] [place] [address] [place], [address] * true * Date:? Generated for Printi ng/Faxing/eTransmitting on:?08/20/2024 03:24 PM EST
--- OUTSIDE RECORDS SUMMARY | 2024-08-20 15:25 | XMS_ITS ---
Author Organization Mohamud Covarrubias III, MD Address [address] [place] [address] Care Team Providers Care Bankruptcy Judge Name Role Phone Mohamud Covarrubias Primary Care Provider [phone] Medications Medication SIG (Take, Route, Frequency, Duration) Notes Start Date End Date Status Guaiatussin AC 100-10 MG/5ML 10 mL as needed Orally every 4 hrs for 7 days 07/06/2024 07/13/2024 Active Azithromycin 250 MG as directed Orally 2 Tablets on the first day, one tablet the rest of the days for 5 days 07/06/2024 Active Social History Sex Assigned At : Social History Observation Description Sex Assigned At Male Encounters Encounter Location Date Provider Diagnosis Mohamud Covarrubias III, MD [address] [place] [address] [place] [address] 07/06/2024 Mohamud Covarrubias Plan Of Treatment Medication Medication Name Sig Start Date Stop Date Notes Guaiatussin AC 100-10 MG/5ML 10 mL as ne eded Orally every 4 hrs for 7 days 07/06/2024 07/13/2024 Azithromycin 250 MG as directed Orally 2 Tablets on the first day, one tablet the rest of the days for 5 days 07/06/2024 Next Appt Details Provider Name:Mohamud Covarrubias, 08/21/2024 11:00:00 AM, [address] [facility] [place], [address], Provider Name:Mohamud Covarrubias, 10/02/2024 09:00:00 AM, [address] [facility] [place], [address], Progress Notes * Khoi MATHURdDOB:1974 (48 yo M)Acc No.[id number]:07/06/2024 Patient:?Yolanda MATHUR :1975???Age:48 Y???Sex:Male Address:[address] [place] [address] [place], [address] * Refills? Start Azithromycin Tablet, 250 MG, Orally, 6, as directed, 2 Tablets on the first day, one tablet the rest of the days, 5 days, Refills=0 Start Guaiatussin AC Syrup, 100-10 MG/5ML, Orally, 420 ML, 10 mL as needed, every 4 hrs, 7 days, Refills=0 * true * Date:? Generated for Mary aden/Jose G/Darrylitting on:?08/20/2024 03:24 PM EST
== END 2024-08-20 13:59 | disposition home or self-care (01) ==
LOC: HO.LAB 13:58
PROVIDERS: PCP Internal Medicine Medical Oncology; Visit Provider Internal Medicine Medical Oncology
DX: E66.9 Obesity, unspecified (principal); E11.9 Type 2 diabetes mellitus without complications
CPT/HCPCS: 36415; 80053; 83036; 85025

== ENCOUNTER 2024-08-21 11:33 | Outpatient (REF) | payer OTHER, SELFPAY ==
--- NOTE | ~2024-08-21 | XR_ITS ---
CLINICAL HISTORY: chronic cough Chest two-view Comparison: None Findings: Clear lungs. No consolidation, venous distention, pulmonary edema, pleural effusion or pneumothorax. Mild eventration of the hemidiaphragms [id number] Normal heart size and mediastinal contour. Bones, soft tissues and upper abdomen are unremarkable. IMPRESSION: No acute cardiopulmonary process. This document has been electronically signed by: Ghanshyam Schmidt MD on 08/24/2024 12:48:44
--- OUTSIDE RECORDS SUMMARY | 2024-08-21 13:22 | XMS_ITS | Patient Health Record ---
Author Organization Mohamud Covarrubias III, MD Address [address] [place] [address] Care Team Providers Care Editor Managing Director Name Role Phone Mohamud Covarrubias Primary Care Provider Allergies Allergen (clinical drug ingredient) Drug/Non Drug Allergy documented on EMR Reaction Allergy Type Onset Date Status No Known Drug Allergy Unknown Drug Allergy Active Results Component Value Reference Range Notes Complete Blood Count Auto Di ff Reviewed date:11/09/2023 01:27:25 PM Interpretation: Performing Lab:[facility], [address] [place] [phone] Notes/Report: White Blood Count 9.5 4.8-10.8 X10*3/uL [...] Panel Reviewed date:11/09/2023 01:27:25 PM Interpretation: Performing Lab:[address] [phone] Notes/Report: Sodium 140 135-145 mmol/L Potassium 4.1 3.3-5.1 mmol/L Chloride 106 96-108 mmol/L Carbon Dioxide 25 22-29 mmol/L Anion Gap 13 12-20 Blood Urea Nitrogen 14 9-16 mg/dL Creatinine 0.83 0.5-1.4 mg/dL Estimated Glomerular Filt Rate > 60 NOTE: For -Australian individuals, multiply the result by 1.210. Chronic [...] Panel Reviewed date:11/09/2023 01:27:25 PM Interpretation: Performing Lab:[address] [phone] Notes/Report: Triglycerides 135 <150 mg/dL Desirable Triglyceride: [...] Random Reviewed date:11/09/2023 01:27:25 PM Interpretation: Performing Lab:[facility], [address] [place] [phone] Notes/Report: Creatinine Urine 364.76 Microalbumin Urine 67.0 Microalbum/Creatinine Ratio Ur 18.3 <30 ug/mg cr Albumin/Creatinine Ratio Reference Ranges: Normal: < 30 ug/mg creatinine Microalbuminuria: 30 - 300 ug/mg creatinine Clinical Albuminuria: > 300 ug/mg creatinine Hemoglobin A1c Reviewed date:11/09/2023 01:27:25 PM Interpretation: Performing Lab:[facility], [address] [place] [phone] Notes/Report: Hemoglobin A1c % 8.6 <6.0 % [...] average glucose, using the formula of the A3O-Bihtkpl Average Glucose study (ADAG), Diabetes Care, Vol.31,#8, Mar. 2007 Complete Blood Count Auto Di ff Reviewed date:08/21/2024 11:15:59 AM Interpretation: Performing Lab:[facility], [address] [place] [phone] Notes/Report: White Blood Count 12.3 4.8-10.8 X10*3/uL [...] 0.0-0.012 X10*3/uL CORRECTED REPORT CORRECTED REPORT Comprehensive Lancing. Panel Fa st Reviewed date:08/21/2024 11:15:59 AM Interpretation: Performing Lab:[facility], [address] [place] [phone] Notes/Report: Sodium 141 135-145 mmol/L Potassium 4.4 [...] Alkaline Phosphatase 73 39-117 U/L SLIDE REVIEW Reviewed date:08/21/2024 11:15:59 AM Interpretation: Performing Lab:[address] [phone] Notes/Report: SLIDE REVIEW VERIFIED Hemoglobin A1c Reviewed date:08/21/2024 11:15:59 AM Interpretation: Performing Lab:[facility], [address] [place] [phone] Notes/Report: Hemoglobin A1c % 9.4 <6.0 % [...] average glucose, using the formula of the I7G-Hsqfzid Average Glucose study (ADAG), Diabetes Care, Vol.31,#8, [...] Duration) Notes Start Date End Date Status Albuterol Sulfate HFA 108 (90 Base) MCG/ACT 1 puff as needed Inhalation every 4 hrs disp one inhaler 08/06/2024 Active Pioglitazone HCl 15 MG 1 tablet Orally O nce a day 11/14/2023 Active metFORMIN HCl 1000 MG TAKE ONE TABLET BY MOUTH TWICE A DAY WITH MEALS Active glyBURIDE 5 MG TAKE 1 TABLET BY MOUTH ONCE DAILY WITH FIRST MAIN MEAL. Active Azithromycin 250 MG as directed Orally 2 Tablets on the first day, one tablet the rest of the days 07/06/2024 Active Omeprazole 20 MG TAKE ONE CAPSULE BY MOUTH EVERY MORNING 30 MINUTES BEFORE A MEAL Active Alcohol Prep 70 % as directed - test blood sugars twice a week fasting 11/02/2020 Active FreeStyle Lancets - as directed - test blood sugars twice a week fasting prior 11/02/2020 Active FreeStyle Lite Test - as directed In Vit ro test blood sugars twice a week fasting prior 11/02/2020 Active FreeStyle Lite - as directed - test blood sugars twice a week fasting prior 11/02/2020 Active predniSONE 20 MG 1 tablet Orally Once a day disp one inhaler 08/06/2024 Active Azithromycin 250 MG as directed Orally 2 Tablets on the first day, one tablet the rest of the days disp one inhaler 08/06/2024 Active Gauze Pads 3 X3 as directed - test blood sugars twice a week fasting 11/02/2020 Active Immunizations Vaccine Route Administration Date Status [...] Status W/U Status Risk Notes Problem Depression (170854176) Depression (F32.9) Active confirmed He has been compliant with his antidepressan ts. He had no suicidal ideation. He is completing all of the activities of daily life without complication. Problem [id number] Obesity (BMI 30.0-34.9) (E66.9) Active confirmed His body mass index is now only 30 to having lost 6 pounds. We discussed his diet and nutrition. We made a plan to continue weight loss at this rate through healthy diet and regular physical activity. Problem Plantar wart (30805837) Plantar wart (B07.0) Active confirmed The wart has resolved Problem 922509199 Mixed hyperlipidemia (E78.2) Active confirmed His total cholesterol is 216, slightly out of range. He admits to eating red meat at least once a day. We have discussed the elements of a cholesterol reduction diet. He has gained 10 pounds since his last visit and we made a plan to lose weight aggressively. Current medications were continued without change. Problem [id number] Sciatica, righ t side (M54.31) Active confirmed No sciatica is present today. On the right. Problem 500580297 GERD without esophagitis (K21.9) Active confirmed This is well controlled with syaa-rgw-biyk ter medications and was not an issue today. Problem 244552601 Erectile dysfunction, unspecified erectile dysfunction type (N52.9) Active confirmed With medications this problem has resolved. Problem 56005382 Tobacco dependence (F17.200) Active confirmed He smokes one half pack to 1 pack of cigarettes per day. I've discussed with him the health consequences of continued smoking. I have offered to refer him to the smoking cessation programs of local [facility] sent to smoke [place]. I have offered to give him Chantix, which she has had in the past and nicotine patches. He is going to consider this offer. Problem 998877754 Left leg pain (M79.605) Active confirmed He is pain in his left greater trochanter as well as his left knee in his left foot. The history indicates 3 separate areas of pain. The left hip is trochanter, right is. It is not clear what is wrong with the near the foot. I last a saw boss to evaluate that when he sees him for his plantar wart. Problem Diabetic nephropathy (694706649) Diabetic nephropathy (E11.21) Active confirmed His renal function remains stable if this time. Problem 41414559 Sciatica of left side (M54.32) Active confirmed The pain in the left leg does not appear to be sciatica. Problem Type 2 diabetes mellitus without complication (529514787) Type 2 diabetes mellitus without complication, without long-term current use of insulin (E11.9) Active confirmed His hemoglobin A1c has increased from 8.3 up to 8.6. His medication was increased. A follow-up visit was given to him. We discussed the necessity to reduce his weight and his A1c. Vital Signs Heart Rate 81 /min 08/21/2024 Temperature 98.4 degrees Fahrenheit 08/21/2024 Blood pressure diastolic 87 mm Hg 08/21/2024 Height 68 in 08/21/2024 Blood pressure systolic 150 mm Hg 08/21/2024 Weight 204 lbs 08/21/2024 BMI 31.01 kg/m2 08/21/2024 Encounters Encounter Location Date Provider Diagnosis Mohamud Covarrubias III, MD [address] [place] [address] [place] [phone] 08/21/2024 Mohamud Covarrubias Chronic cough R05.3 Mohamud Covarrubias III, MD [address] [place] [address] [place] [phone] 11/14/2023 Mohamud Covarrubias Obesity (BMI 30.0-34 .9) E66.9 ; Type 2 diabetes mellitus without complication, without long-term current use of insulin E11.9 ; Tobacco dependence F17.200 ; Sciatica, right side M54.31 ; Plantar wart B07.0 ; Mixed hyperlipidemia E78.2 ; GERD without esophagitis K21.9 and Depression F32.9 Mohamud Covarrubias III, MD [address] [place] [address] [place] [address] 08/06/2024 Mohamud Covarrubias III, MD [address] [place] [address] [place] [phone] 10/15/2023 Mohamud Covarrubias III, MD [address] [place] [address] [place] [phone] 07/06/2024 Mohamud Covarrubias III, MD [address] [place] [address] [place] [address] 07/06/2024 Mohamud Covarrubias Assessments Encounter Date Diagnosis (ICD Code) Assessment Notes Treat ment Notes Treatment Clinical Notes 08/21/2024 Chronic cough (ICD-1 0 - R05.3) 11/14/2023 Obesity (BMI 30.0-34.9) (ICD-10 - E66.9) [...] him to the smoking cessation programs of [facility] sent to smoke Lisa. I have offered to give him Chantix, [...] - K21.9) This is well controlled with grno-ato-mbbnbyl medications and was not an issue today. 11/14/2023 Depression (ICD-10 - F32.9) He has been compliant with his antidepressants. He had no suicidal ideation. He is completing all of the activities of daily life without complication. Plan Of Treatment Pending Test Test Name Order Date PROFILE, FASTING (COMPREHENSIVE METABOLI C) 01/01/2022 PROFILE, FASTING (COMPREHENSIVE METABOLI C) 01/09/2021 PROFILE, FASTING (COMPREHENSIVE METABOLI C) 04/25/2023 PROFILE, FASTING (COMPREHENSIVE METABOLI C) 04/27/2020 PROFILE, FASTING (COMPREHENSIVE METABOLI C) 12/15/2020 PROFILE, FASTING (COMPREHENSIVE METABOLI C) 07/15/2019 PROFILE, FASTING (COMPREHENSIVE METABOLI C) 09/05/2018 PROFILE, FASTING (COMPREHENSIVE METABOLI C) 01/11/2023 PROFILE, FASTING (COMPREHENSIVE METABOLI C) 11/14/2023 PROFILE, FASTING (COMPREHENSIVE METABOLI C) 08/15/2023 PROFILE, RANDOM (COMPREHENSIVE METABOLIC ) 11/02/2020 PROFILE, RANDOM (COMPREHENSIVE METABOLIC ) 06/19/2019 HEMOGLOBIN A1C (GLYCOHEMOGLOBIN) 022 HEMOGLOBIN A1C (GLYCOHEMOGLOBIN) 021 HEMOGLOBIN A1C (GLYCOHEMOGLOBIN) 023 HEMOGLOBIN A1C (GLYCOHEMOGLOBIN) 021 HEMOGLOBIN A1C (GLYCOHEMOGLOBIN) 020 HEMOGLOBIN A1C (GLYCOHEMOGLOBIN) 019 HEMOGLOBIN A1C (GLYCOHEMOGLOBIN) 023 AMYLASE 09/05/2018 LIPID PANEL 01/11/2023 LIPID PANEL 01/09/2021 LIPID PANEL 04/25/2023 LIPID PANEL 12/15/2020 LIPID PANEL 11/02/2020 LIPID PANEL 04/27/2020 LIPID PANEL 07/15/2019 FREE T4 (FT4) 11/02/2020 TSH (THYROID STIMULATING HORMONE) 2020 PSA, TOTAL 01/11/2023 PSA, TOTAL 07/15/2019 MICROALBUMIN, RANDOM 01/11/2023 MICROALBUMIN, RANDOM 01/09/2021 MICROALBUMIN, RANDOM 04/27/2020 CBC w DIFF 04/27/2020 CBC w DIFF 07/15/2019 CBC w DIFF 11/02/2020 CBC w DIFF 06/19/2019 CBC w DIFF 01/01/2022 CBC w DIFF 04/25/2023 CBC w DIFF 12/15/2020 CBC w DIFF 01/11/2023 CBC w DIFF 01/09/2021 XR CHEST 2 VIEW PA & LAT 08/21/2024 VITAMIN D 25-OH TOTAL 01/11/2023 CBC WITH AUTO DIFF 08/15/2023 CBC WITH AUTO DIFF 11/14/2023 Lipid Panel 08/15/2023 Lipid Panel 01/01/2022 Microalbumin, Random 08/15/2023 Hemoglobin A1c 11/14/2023 Hemoglobin A1c 08/15/2023 Hemoglobin A1c 12/15/2020 Next Appt Details Provider Name:Mohamud Covarrubias, 09/11/2024 10:15:00 AM, [address] [facility] [address] [place], [place], [address], Provider Name:Mohamud Covarrubias, 10/02/2024 09:00:00 AM, [address] [place] [address] [address], [place], [address], Insurance Providers Payer Name Payer Address Payer Phone Subscriber Number Group Number Insured Name Patient Relationship to Insured Coverage Start Date Coverage End Date [employer] [address] [address] [place] [address] [id number] Yolanda Mathur Self - patient is the insured MEDICAID [address] [place], [place] [id number] [phone] [id number] Yolanda Mathur Self - patient is the insured Medical (General) History Medical History History ICD Code Sciatica M54.30 left leg pain one year tobacco dependence obesity mixed hyperlipidemia GERD plantar wart right foot erectile dysfunction dyspepsia 2020 type 2 diabetes mellitus Surgical History Surgery Date(Month/Year)
--- OUTSIDE RECORDS SUMMARY | 2024-08-21 13:22 | XMS_ITS ---
Author Organization Mohamud Covarrubias III, MD Address [address] [place] [address] Care Team Providers Care Patient Portal Concierge Name Role Phone Mohamud Covarrubias Primary Care Provider Medications Medication SIG (Take, Route, Frequency, Duration) [...] Date Provider Diagnosis Mohamud Covarrubias III, MD [address] [place] [address] [place] [address] 07/06/2024 Mohamud Covarrubias Plan Of Treatment Medication Medication Name Sig Start Date Stop Date Notes Guaiatussin AC 100-10 MG/5ML 10 mL as ne eded Orally every 4 hrs for 7 days 07/06/2024 07/13/2024 Azithromycin 250 MG as directed Orally 2 Tablets on the first day, one tablet the rest of the days for 5 days 07/06/2024 Next Appt Details Provider Name:Mohamud Covarrubias, 09/11/2024 10:15:00 AM, [address] [facility] [place], [address], Provider Name:Mohamud Covarrubias, 10/02/2024 09:00:00 AM, [address] [facility] [place], [address], Progress Notes * Khoi MATHURdDOB:1974 (48 yo M)Acc No.[id number]:07/06/2024 Patient:?Yolanda MATHUR :1975???Age:48 Y???Sex:Male Address:[address] [place] [address] [place], [address] * Refills? Start Azithromycin Tablet, 250 MG, Orally, 6, as directed, 2 Tablets on the first day, one tablet the rest of the days, 5 days, Refills=0 Start Guaiatussin AC Syrup, 100-10 MG/5ML, Orally, 420 ML, 10 mL as needed, every 4 hrs, 7 days, Refills=0 * true * Date:? Generated for Mary aden/Jose G/Darrylitting on:?08/21/2024 01:22 PM EST
--- OUTSIDE RECORDS SUMMARY | 2024-08-21 13:22 | XMS_ITS ---
Author Organization Mohamud Covarrubias III, MD Address [address] [place] [address] [place] [address] Care Team Providers Care Cargo Supervisor Name Role Phone Mohamud Covarrubias Primary Care [...] Date Provider Diagnosis Mohamud Covarrubias III, MD [address] [place] [address] [place] [address] 08/06/2024 Mohamud Covarrubias Plan Of Treatment Medication [...] inhaler Next Appt Details Provider Name:Mohamud Covarrubias 09/11/2024 10:15:00 AM, [address] [facility] [address], [place], [address], Provider Name:Mohamud Covarrubias, 10/02/2024 09:00:00 AM, [address] [place] [address] [address], [place], [phone], Progress Notes * Khoi MATHURdDOB:1974 (49 yo M)Acc No.[id number]:08/06/2024 Patient:?LEECHAPIS Yolanda :1975???Age:49 Y???Sex:Male Address:[address] [place] [address] [place], [address] * Refills? Start Azithromycin Tablet, 250 MG, [...]
--- OUTSIDE RECORDS SUMMARY | 2024-08-21 13:22 | XMS_ITS ---
Author Organization Mohamud Covarrubias III, MD Address [address] [place] [address] Care Team Providers Care Sales Associate Key Holder Name Role Phone Mohamud Covarrubias Primary Care Provider Allergies Allergen (clinical drug ingredient) Drug/Non Drug Allergy documented on EMR Reaction Allergy Type Onset Date Status No Known Drug Allergy Unknown Drug Allergy Active REASON FOR VISIT Coughing x 2 months, dry Medications Medication SIG (Take, Route, Frequency, Duration) Notes Start Date End Date Status metFORMIN HCl 1000 MG TAKE ONE TABLET BY MOUTH TWICE A DAY WITH MEALS Active glyBURIDE 5 MG TAKE 1 TABLET BY MOUTH ONCE DAILY WITH FIRST MAIN MEAL. Active Azithromycin 250 MG as directed Orally 2 Tablets on the first day, one tablet the rest of the days 07/06/2024 Active FreeStyle Lite Test - as directed In Vit ro test blood sugars twice a week fasting prior 11/02/2020 Active FreeStyle Lite - as directed - test blood sugars twice a week fasting prior 11/02/2020 Active Albuterol Sulfate HFA 108 (90 Base) MCG/ACT 1 puff as needed Inhalation every 4 hrs disp one inhaler 08/06/2024 Active Pioglitazone HCl 15 MG 1 tablet Orally O nce a day 11/14/2023 Active Omeprazole 20 MG TAKE ONE CAPSULE BY MOUTH EVERY MORNING 30 MINUTES BEFORE A MEAL Active predniSONE 20 MG 1 tablet Orally Once a day disp one inhaler 08/06/2024 Active Azithromycin 250 MG as directed Orally 2 Tablets on the first day, one tablet the rest of the days disp one inhaler 08/06/2024 Active Alcohol Prep 70 % as directed - test blood sugars twice a week fasting 11/02/2020 Active FreeStyle Lancets - as directed - test blood sugars twice a week fasting prior 11/02/2020 Active Gauze Pads 3 X3 as directed - test blood sugars twice a week fasting 11/02/2020 Active Social History Tobacco Use: Social History Observation [...] User Light cigarett e smoker ((1-9 cigs/day) Vital Signs Temperature 98.4 degrees Fahrenheit 08/21/19 25 Blood pressure systolic 150 mm Hg 08/21/19 25 Blood pressure diastolic 87 mm Hg 025 Heart Rate 81 /min 08/21/2024 Height 68 in 08/21/2024 Weight 204 lbs 08/21/2024 BMI 31.01 kg/m2 08/21/2024 Encounters Encounter Location Date Provider Diagnosis Mohamud Covarrubias III, MD [address] [place] [address] [place] [id number] 08/21/2024 Mohamud Covarrubias Chronic cough R05.3 Assessments Encounter Date Diagnosis (ICD Code) Assessment Notes Treatment Notes Treatment Clinical Notes 08/21/2024 Chronic cough (ICD-10 - R05.3) Plan Of Treatment Medication Medication Name Sig Start Date Stop Date Notes metFORMIN HCl 1000 MG TAKE ONE TABLET BY MOUTH TWICE A DAY WITH MEALS glyBURIDE 5 MG TAKE 1 TABLET BY HAO TH ONCE DAILY WITH FIRST MAIN MEAL. Azithromycin 250 MG as directed Orally 2 Tablets on the first day, one tablet the rest of the days 07/06/2024 FreeStyle Lite Test - as directed In Vit ro test blood sugars twice a week fasting prior 11/02/2020 FreeStyle Lite - as directed - test blood sugars twice a week fasting prior 11/02/2020 Albuterol Sulfate HFA 108 (90 Base) MCG/ACT 1 puff as needed Inhalation every 4 hrs 08/06/2024 disp one inhaler Pioglitazone HCl 15 MG 1 tablet Orally O nce a day 11/14/2023 Omeprazole 20 MG TAKE ONE CAPSULE BY MOUTH EVERY MORNING 30 MINUTES BEFORE A MEAL predniSONE 20 MG 1 tablet Orally Once a day 08/06/2024 disp one inhaler Azithromycin 250 MG as directed Orally 2 Tablets on the first day, one tablet the rest of the days 08/06/2024 disp one inhaler Alcohol Prep 70 % as directed - test blood sugars twice a week fasting 11/02/2020 FreeStyle Lancets - as directed - test blood sugars twice a week fasting prior 11/02/2020 Gauze Pads 3 X3 as directed - test blood sugars twice a week fasting 11/02/2020 Pending Test Test Name Order Date XR CHEST 2 VIEW PA & LAT 08/21/2024 Next Appt Details Follow Up: 3 Weeks, Reason: OV Provider Name:Mohamud Covarrubias, 09/11/2024 10:15:00 AM, [address] [place] [address] [address], [place], [id number], Provider Name:Mohamud Covarrubias, 10/02/2024 09:00:00 AM, [address] [place] [address] [address], [place], [id number], Progress Notes * Roxie MATHUROB:1974 (49 yo M)Acc No.[id number]:08/21/2024 Progress Notes Patient:?LEEJBMINISTEIRO Yolanda Provider:?Mohamud Covarrubias MD :1975???Age:49 Y???Sex:Male Rc e:08/21/2024 Address:[address] [place] [address], [id number] Subjective: * Chief Complaints: * ???1. Coughing x 2 months. 2 . Dry. * HPI: ???COVID-19 Screening:?Questions?Have you had any new onset fever, chills, cough, congestion, sore throat, shortness of breath, muscle aches??Yes Cough longer than 48 hours * ROS:?General/Constitutional:?pain?only normal aches and pains.?Chills?denies.?Fatigue?admits.?Fever?denies.?ENT:?Decreased hearing?denies.?Respiratory:?Cough?denies.?Cardiovascular:?Chest pain with exertion?denies.?Dyspnea on exertion?denies.?Shortness of breath?denies.?Gastrointestinal:?Constipation?denies.?Decreased appetite?denies.?Diarrhea?denies.?Heartburn?denies.?Nausea?denies.?Rectal bleeding?denies.?Vomiting?denies.?Hematology:?bruising?denies.?petechiae?denies.?Swollen glands?none have been noted.?Genitourinary:?Frequent urination?denies.?Musculoskeletal:?Muscle aches?denies.?Painful joints?denies.?Sciatica?denies.?Weakness?denies.?Skin:?Itching?denies.?Rash?denies.?Skin lesion(s)?denies.?Neurologic:?Difficulty speaking?denies.?Dizziness?denies.?Headache?denies.?Low back pain?denies.?Psychiatric:?Depressed mood?denies.? * Medical History:?Sciatica, L eft leg pain one year, Tobacco dependence, Obesity, Mixed hyperlipidemia, GERD, Plantar wart right foot, Erectile dysfunction, Dyspepsia, 2020 type 2 diabetes mellitus. * Surgical History:?Denies Pas t Surgical History. * Hospitalization/Major Diagno stic Procedure:?Denies Past Hospitalization. * Family History:?Father: dece ased 62 yrs, Myocardial infarction, coronary artery disease, diabetes mellitus, diagnosed with DM, HTN, CVD.?Mother: alive 66 yrs, Breast cancer,.?2 brother(s) - healthy. 1 son(s) , 1 daughter(s) - healthy. .? His father of heart disease. His mother has no history of hereditary cancer. His brothers are healthy and well. His children are healthy and well. * Social History:?Tobacco Use:?Tobacco Use/Smoking?Patient is a?current smoker ?How often do you smoke cigarettes??every day ?How many cigarettes a day do you smoke??6-10 ?How soon after you wake up do you smoke your first cigarette??31-60 minutes ?Are you interested in quitting??Not ready to quit ?Additional Findings: Tobacco User?Light cigarette smoker ((1-9 cigs/day) ???He was born in [facility], [facility]. He lives in [place], [place] and works in a convenience store. He has been to [facility] for 22 years. They have 2 healthy children. His primary language is Icelandic. * Medications:?Taking glyBURID E 5 MG Tablet TAKE 1 TABLET BY MOUTH ONCE DAILY WITH FIRST MAIN MEAL. , Taking metFORMIN HCl 1000 MG Tablet TAKE ONE TABLET BY MOUTH TWICE A DAY WITH MEALS , Taking FreeStyle Lite - Device as directed - test blood sugars twice a week fasting prior , Taking FreeStyle Lite Test - Strip as directed In Vitro test blood sugars twice a week fasting prior , Taking FreeStyle Lancets - Miscellaneous as directed - test blood sugars twice a week fasting prior , Taking Alcohol Prep 70 % Pad as directed - test blood sugars twice a week fasting , Taking Gauze Pads 3 X3 Pad as directed - test blood sugars twice a week fasting , Taking Pioglitazone HCl 15 MG Tablet 1 tablet Orally Once a day , Taking Azithromycin 250 MG Tablet as directed Orally 2 Tablets on the first day, one tablet the rest of the days , Taking Omeprazole 20 MG Capsule Delayed Release TAKE ONE CAPSULE BY MOUTH EVERY MORNING 30 MINUTES BEFORE A MEAL , Taking Azithromycin 250 MG Tablet as directed Orally 2 Tablets on the first day, one tablet the rest of the days , Notes to Pharmacist: disp one inhaler, Taking Albuterol Sulfate HFA 108 (90 Base) MCG/ACT Aerosol Solution 1 puff as needed Inhalation every 4 hrs , Notes to Pharmacist: disp one inhaler, Medication List reviewed and reconciled with the patient * Allergies:?No Known Drug All ergy. Objective: * Vitals:?Ht: 68, Wt: 204, BMI :31.01, BP: 150/87, HR: 81, Temp: 98.4, Wt-k.[id number]. * ???Past Orders: Lab:Complete Blood Count Aut o Diff * Collection Date 08/20/2024 11/07/2023 08/03/2023 Collection Time 02:06 PM 10:45 AM 09:30 AM Order Date 08/20/2024 11/07/2023 08/03/2023 White Blood Count 12.3?H (Ref Range: 4.8-10.8 X10*3/uL) 9.5 (Ref Range: 4.8-10.8 X10*3/uL) 11.3?H (Ref Range: 4.8-10.8 X10*3/uL) Red Blood Count 5.30 (Ref Range: 4.60-5.80 X10*6/uL) 5.58 (Ref Range: 4.60-5.80 X10*6/uL) 5.49 (Ref Range: 4.60-5.80 X10*6/uL) Hemoglobin 13.8?L (Ref Range: 14.0-18.0 g/dl) 14.6 (Ref Range: 14.0-18.0 g/dl) 14.4 (Ref Range: 14.0-18.0 g/dl) Hematocrit 42.6 (Ref Range: 42.0-52.0 %) 44.6 (Ref Range: 42.0-52.0 %) 44.6 (Ref Range: 42.0-52.0 %) Mean Corpuscular Volume 80.4 (Ref Range: 80.0-98.0 fL) 79.9?L (Ref Range: 80.0-98.0 fL) 81.2 (Ref Range: 80.0-98.0 fL) Mean Corpuscular Hemoglobin 26.0?L (Ref Range: 27.0-33.0 pg) 26.2?L (Ref Range: 27.0-33.0 pg) 26.2?L (Ref Range: 27.0-33.0 pg) Mean Corpuscular HGB Conc 32.4 (Ref Range: 31.0-36.0 g/dl) 32.7 (Ref Range: 31.0-36.0 g/dl) 32.3 (Ref Range: 31.0-36.0 g/dl) Red Cell Distribution Width 14.6 (Ref Range: 11.0-16.0 %) 13.9 (Ref Range: 11.0-16.0 %) 13.9 (Ref Range: 11.0-16.0 %) Platelet Count 280 (Ref Range: 160-400 X10*3/uL) 278 (Ref Range: 160-400 X10*3/uL) 282 (Ref Range: 160-400 X10*3/uL) Mean Platelet Volume 9.8 (Ref Range: 9.4-12.4 fL) 10.0 (Ref Range: 9.4-12.4 fL) 9.6 (Ref Range: 9.4-12.4 fL) Neutrophils Percent Auto 46.9 (Ref Range: 45-73 %) 54.8 (Ref Range: 45-73 %) 48.4 (Ref Range: 45-73 %) Imm Gran Pct Auto 0.2 (Ref Range: 0.0-0.4 %) 0.3 (Ref Range: 0.0-0.4 %) 0.4 (Ref Range: 0.0-0.4 %) Lymphocytes Percent Auto 42.1?H (Ref Range: 20-40 %) 35.7 (Ref Range: 20-40 %) 40.4?H (Ref Range: 20-40 %) Monocytes Percent Auto 7.1 (Ref Range: 2-11 %) 6.2 (Ref Range: 2-11 %) 7.0 (Ref Range: 2-11 %) Eosinophils Percent Auto 3.0 (Ref Range: 0-4 %) 2.3 (Ref Range: 0-4 %) 3.1 (Ref Range: 0-4 %) Basophils Percent Auto 0.7 (Ref Range: 0-2 %) 0.7 (Ref Range: 0-2 %) 0.7 (Ref Range: 0-2 %) NRBC Pct Auto 0.0 (Ref Range: 0.0-0.2 /100WBC) 0.0 (Ref Range: 0.0-0.2 /100WBC) 0.0 (Ref Range: 0.0-0.2 /100WBC) Neutrophils Absolute Auto 5.8 (Ref Range: 2.0-8.3 x10*3/uL) 5.2 (Ref Range: 2.0-8.3 x10*3/uL) 5.5 (Ref Range: 2.0-8.3 x10*3/uL) Imm Gran Abs Auto 0.03 (Ref Range: 0.00-0.03 X10*3/uL) 0.03 (Ref Range: 0.00-0.03 X10*3/uL) 0.04?H (Ref Range: 0.00-0.03 X10*3/uL) Lymphocytes Absolute Auto 5.2?H (Ref Range: 1.2-4.9 X10*3/uL) 3.4 (Ref Range: 1.2-4.9 X10*3/uL) 4.6 (Ref Range: 1.2-4.9 X10*3/uL) Monocytes Absolute Auto 0.9 (Ref Range: 0.1-1.2 X10*3/uL) 0.6 (Ref Range: 0.1-1.2 X10*3/uL) 0.8 (Ref Range: 0.1-1.2 X10*3/uL) Eosinophils Absolute Auto 0.4 (Ref Range: 0.0-0.4 X10*3/uL) 0.2 (Ref Range: 0.0-0.4 X10*3/uL) 0.4 (Ref Range: 0.0-0.4 X10*3/uL) Basophils Absolute Auto 0.1 (Ref Range: 0.0-0.2 X10*3/uL) 0.1 (Ref Range: 0.0-0.2 X10*3/uL) 0.1 (Ref Range: 0.0-0.2 X10*3/uL) NRBC Abs Auto 0.000 (Ref Range: 0.0-0.012 X10*3/uL) 0.000 (Ref Range: 0.0-0.012 X10*3/uL) 0.000 (Ref Range: 0.0-0.012 X10*3/uL) * Lab:Hitesh Conde Funmilayo roper Fast * Collection Date 08/20/2024 08/03/2023 12/11/2021 Collection Time 02:06 PM 09:30 AM 10:40 AM Order Date 08/20/2024 08/03/2023 12/11/2021 Sodium 141 (Ref Range: 135-145 mmol/L) 137 (Ref Range: 135-145 mmol/L) 136 (Ref Range: 135-145 mmol/L) Bilirubin Total 0.4 (Ref Range: 0.0-1.0 mg/dL) 0.5 (Ref Range: 0.0-1.0 mg/dL) 0.4 (Ref Range: 0.0-1.0 mg/dL) Aspartate Amino Transferase 21 (Ref Range: 5-37 U/L) 29 (Ref Range: 5-37 U/L) 45?H (Ref Range: 5-37 U/L) Alanine Aminotransferase 25 (Ref Range: 0-40 U/L) 34 (Ref Range: 0-40 U/L) 36 (Ref Range: 0-40 U/L) Total Protein 7.6 (Ref Range: 6.5-8.0 g/dL) 8.0 (Ref Range: 6.5-8.0 g/dL) 7.2 (Ref Range: 6.5-8.0 g/dL) Albumin Level 4.1 (Ref Range: 3.5-5.0 g/dL) 4.1 (Ref Range: 3.5-5.0 g/dL) 3.8 (Ref Range: 3.5-5.0 g/dL) Alkaline Phosphatase 73 (Ref Range: 39-117 U/L) 69 (Ref Range: 39-117 U/L) 86 (Ref Range: 39-117 U/L) Potassium 4.4 (Ref Range: 3.3-5.1 mmol/L) 4.6 (Ref Range: 3.3-5.1 mmol/L) 4.8 (Ref Range: 3.3-5.1 mmol/L) Chloride 107 (Ref Range: 96-108 mmol/L) 103 (Ref Range: 96-108 mmol/L) 105 (Ref Range: 96-108 mmol/L) Carbon Dioxide 24 (Ref Range: 22-29 mmol/L) 24 (Ref Range: 22-29 mmol/L) 23 (Ref Range: 22-29 mmol/L) Anion Gap 14 (Ref Range: 12-20) 15 (Ref Range: 12-20) 13 (Ref Range: 12-20) Blood Urea Nitrogen 10 (Ref Range: 9-16 mg/dL) 12 (Ref Range: 9-16 mg/dL) 11 (Ref Range: 9-16 mg/dL) Creatinine 0.95 (Ref Range: 0.5-1.4 mg/dL) 1.01 (Ref Range: 0.5-1.4 mg/dL) 0.86 (Ref Range: 0.5-1.4 mg/dL) Estimated Glomerular Filt Rate > 60 > 60 > 60 Glucose Fasting 197?H (Ref Range: 60-99 mg/dL) 134?H (Ref Range: 60-99 mg/dL) 152?H (Ref Range: 60-99 mg/dL) Calcium 9.1 (Ref Range: 8.4-10.2 mg/dL) 9.4 (Ref Range: 8.4-10.2 mg/dL) 8.7 (Ref Range: 8.4-10.2 mg/dL) * Lab:SLIDE REVIEW * Collection Date 08/20/2024 03/30/2023 Collection Time 02:06 PM 10:24 AM Order Date 08/20/2024 03/30/2023 SLIDE REVIEW VERIFIED VERIFIED * Lab:Hemoglobin A1c * Collection Date 08/20/2024 11/07/2023 08/03/2023 Collection Time 02:06 PM 10:45 AM 09:30 AM Order Date 08/20/2024 11/07/2023 08/03/2023 Hemoglobin A1c % 9.4?H (Ref Range: <6.0 %) 8.6?H (Ref Range: <6.0 %) 8.3?H (Ref Range: <6.0 %) Estimated Average Glucose 223 (Ref Range: mg/dL) 200 (Ref Range: mg/dL) 192 (Ref Range: mg/dL) * Examination: ???General Examination: ?GENERAL APPEARANCE:?pleasant, well nourished, well developed, in no acute distress, calm and relaxed.?HEAD:?atraumatic, normocephalic.?EYES:?eomi, perrla, anicteric, conjugate.?EARS:?normal.?NOSE:?septum intact.?ORAL CAVITY:?normal, unremarkable.?NECK/THYROID:?no jugular venous distention, no carotid bruit, thyroid normal.?LYMPH NODES:?no enlarged lymph nodes,spleen normal.?SKIN:?no suspicious lesions, anicteric.?HEART:?no clicks, gallops, murmurs, or rubs, regular rhythm, S1, S2 normal, no s3, or vascular bruits.?LUNGS:?clear to auscultation .?BREASTS:??no masses palpable bilaterally.?ABDOMEN:?bowel sounds normal, no ascites, no organomegaly, no mass.?RECTAL EXAM:?not examined.?MUSCULOSKELETAL:?extremities unremarkable, no clubbing, cyanosis or edema.?PERIPHERAL PULSES:?normal.?NEUROLOGIC:?alert and oriented, cranial nerves 2-12 grossly intact, deep tendon reflexes 2+ symmetrical, motor strength normal upper and lower extremities, sensory exam intact.?PSYCH:?alert, oriented.? Assessment: * Assessment: 1.?Chronic cough - R05.3??? Plan: * Treatment: 2.?Others? Continue Azithromycin Tablet, 250 MG, as directed, Orally, 2 Tablets on the first day, one tablet the rest of the days, Notes to Pharmacist: disp one inhaler;?Continue predniSONE Tablet, 20 MG, 1 tablet, Orally, Once a day, Notes to Pharmacist: disp one inhaler;?Continue Albuterol Sulfate HFA Aerosol Solution, 108 (90 Base) MCG/ACT, 1 puff as needed, Inhalation, every 4 hrs, Notes to Pharmacist: disp one inhaler;?Continue Omeprazole Capsule Delayed Release, 20 MG, TAKE ONE CAPSULE BY MOUTH EVERY MORNING 30 MINUTES BEFORE A MEAL;?Continue Azithromycin Tablet, 250 MG, as directed, Orally, 2 Tablets on the first day, one tablet the rest of the days;?Continue glyBURIDE Tablet, 5 MG, TAKE 1 TABLET BY MOUTH ONCE DAILY WITH FIRST MAIN MEAL.;?Continue metFORMIN HCl Tablet, 1000 MG, TAKE ONE TABLET BY MOUTH TWICE A DAY WITH MEALS;?Continue FreeStyle Lite Device, -, as directed, -, test blood sugars twice a week fasting prior;?Continue FreeStyle Lite Test Strip, -, as directed, In Vitro, test blood sugars twice a week fasting prior;?Continue FreeStyle Lancets Miscellaneous, -, as directed, -, test blood sugars twice a week fasting prior;?Continue Alcohol Prep Pad, 70 %, as directed, -, test blood sugars twice a week fasting;?Continue Gauze Pads Pad, 3 X3 , as directed, -, test blood sugars twice a week fasting;?Continue Pioglitazone HCl Tablet, 15 MG, 1 tablet, Orally, Once a day.?? * Preventive Medicine:? ??Counseling:?Care goal follow-up plan:?Counseling for abnormal BMI given?Yes ?Above Normal BMI Follow-up?Dietary management education, guidance, and counseling, Dietary needs education, Exercise promotion: strength training, Exercise promotion: stretching, Feeding regime, Giving encouragement to exercise, Lifestyle education regarding diet, Nutrition / feeding management, Nutrition therapy, Prescribed activity/exercise education, Prescribed diet education, Prescribed dietary intake, Special diet education, Weight monitoring , Intervention, Order not done: Medical or Other reason not done * Follow Up:?3 Weeks (Reason: OV) * Images: * The named appointment provid er may or may not be the originator of this progress note, and it is not deemed complete until electronically signed by the appointment provider. Sign off status: Pending * Provider:?Mohamud Covarrubias MD Date:?10/2024 Generated for Mary aden/Jose G/eTransmitting on:?08/21/2024 01:21 PM EST History and Physical Notes * HPI (History of Present Illness) Category Sub-Category Detail Notes COVID-19 Screening Questions Have you had any new onset fever, chills, cough, congestion, sore throat, shortness of breath, muscle aches?: Yes Cough longer than 48 hours Examination Category Sub-Category Detail Notes General Examination GENERAL APPEARANCE: pleasant , well nourished, well developed, in no acute distress, calm and relaxed HEAD: atraumatic, normocep halic EYES: eomi, perrla, anicte cristóbal, conjugate EARS: normal NOSE: septum intact NECK/THYROID: no jugular venous di stention, no carotid bruit, thyroid normal HEART: no clicks, gallops, murmurs, or rubs, regular rhythm, S1, S2 normal, no s3, or vascular bruits LUNGS: clear to auscultatio n ABDOMEN: bowel sounds normal, no ascites, no organomegaly, no mass NEUROLOGIC: alert and oriented, cranial nerves 2-12 grossly intact, deep tendon reflexes 2+ symmetrical, motor strength normal upper and lower extremities, sensory exam intact SKIN: no suspicious lesion s, anicteric PERIPHERAL PULSES: normal BREASTS: no masses palpable b ilaterally MUSCULOSKELETAL: extremities unremark able, no clubbing, cyanosis or edema LYMPH NODES: no enlarged lymph no delmy,spleen normal RECTAL EXAM: not examined PSYCH: alert, oriented ORAL CAVITY: normal, unremarkable
== END 2024-08-21 11:34 | disposition home or self-care (01) ==
LOC: HO.XRAY 11:33
PROVIDERS: PCP Internal Medicine Medical Oncology; Visit Provider Internal Medicine Medical Oncology
DX: R05.3 Chronic cough (principal)
CPT/HCPCS: 71046

== ENCOUNTER → 2024-08-21 11:55 | Outpatient (BNV) | payer OTHER, SELFPAY | PROVIDERS: PCP Internal Medicine Medical Oncology; Visit Provider Radiology Diagnostic Radiology | DX: R05.3 Chronic cough (principal) | CPT/HCPCS: 71046 ==

== ENCOUNTER 2025-04-29 10:38 | Outpatient (REF) | payer OTHER, SELFPAY ==
[2025-04-29 10:54] LABS: MANUAL DIFF FLAG NO
[2025-04-29 11:11] LABS: Hematocrit 41.3 % (42.0-52.0); Hemoglobin 13.4 g/dl (14.0-18.0); Imm Gran Abs Auto 0.03 X10*3/uL (0.00-0.03); Imm Gran Pct Auto 0.2 % (0.0-0.4); Lymphocytes Absolute Auto 5.2 X10*3/uL (1.2-4.9); Mean Corpuscular HGB Conc 32.4 g/dl (31.0-36.0); Mean Corpuscular Hemoglobin 25.0 pg (27.0-33.0); Mean Corpuscular Volume 77.1 fL (80.0-98.0); NRBC Abs Auto 0.000 X10*3/uL (0.0-0.012); NRBC Pct Auto 0.0 /100WBC (0.0-0.2); Platelet Count 288 X10*3/uL (160-400); Red Blood Count 5.36 X10*6/uL (4.60-5.80); SCAN SMEAR FLAG 1; White Blood Count 12.3 X10*3/uL (4.8-10.8)
[2025-04-29 11:18] LABS: Hemoglobin A1C 264.3786 umol/L; Total Hemoglobin (HGBA1C) 3527.9091 umol/L
[2025-04-29 11:47] LABS: Alanine Aminotransferase 23 U/L (0-40); Albumin Level 4.3 g/dL (3.5-5.0); Alkaline Phosphatase 78 U/L (39-117); Anion Gap 13 (12-20); Aspartate Amino Transferase 31 U/L (5-37); Blood Urea Nitrogen 11 mg/dL (9-16); Calcium 9.3 mg/dL (8.4-10.2); Carbon Dioxide 25 mmol/L (22-29); Chloride 107 mmol/L (96-108); Cholesterol 223 mg/dL (<200); Estimated Glomerular Filt Rate > 60; HDL Cholesterol 35 mg/dL (>40); Potassium 4.1 mmol/L (3.3-5.1); Sodium 141 mmol/L (135-145); Total Protein 7.5 g/dL (6.5-8.0); Triglycerides 202 mg/dL (<150)
[2025-04-29 13:01] LABS: Microalbum/Creatinine Ratio Ur 10.4 ug/mg cr (<30)
== END 2025-04-29 10:39 | disposition home or self-care (01) ==
LOC: HO.LAB 10:38
PROVIDERS: PCP Internal Medicine Medical Oncology; Visit Provider Internal Medicine Medical Oncology
DX: E11.9 Type 2 diabetes mellitus without complications (principal); E78.2 Mixed hyperlipidemia; N52.9 Male erectile dysfunction, unspecified; E66.9 Obesity, unspecified
CPT/HCPCS: 36415; 80053; 80061; 82043; 82570; 83036; 85025